=== PATIENT | male | born 1955 | race Caucasian/White ===

== ENCOUNTER 2017-08-28 06:23 | Day surgery (SDC) | payer OTHER ==
[~2017-08-28] VITALS: Ht 175.3 cm; Wt 71.8 kg
[~2017-08-28 06:23] MED LIST: ASPI-1182 PO; ASPI-1192 PO; CARV3 PO; CETI-290 PO; DONE5TAB5 PO; FLUO-191 PO; LISI-660 PO; MEMA5 PO; PRAV20TA4 PO; QUET100T PO; RANI150T7 PO; SIMV-261 PO; TAMS0.4C32 PO
[2017-08-28] MEDS ORDERED: LIDOCAINE HCL 2% 30 ML JELLY TP ONE (06:24)
[2017-08-28] MEDS ORDERED: LIDOCAINE HCL 4% 50 ML SOLUTION TP ONE (06:24)
[2017-08-28] MEDS ORDERED: BENZOCAINE 20% 50 MCG/SPRAY 57 GM TP ONE (06:24)
[2017-08-28] MEDS ORDERED: SODIUM CHLORIDE 0.9% 1,000 ML IV ONE ×2 (06:30→06:53)
[2017-08-28] MEDS ORDERED: MIDAZOLAM HCL 2 MG/2 ML VIAL ONE (07:38)
[2017-08-28] MEDS ORDERED: FentaNYL CITRATE-PF 100 MCG/2 ML VIAL ONE (07:38)
[2017-08-28] MEDS ORDERED: MethylPREDNISolone SOD SUCC 125 MG/2 ML VIAL IVP ONE (08:45)
[2017-08-28] MEDS ORDERED: MethylPREDNISolone SOD SUCC 125 MG/2 ML VIAL ONE (09:15)
[2017-08-28] MEDS ORDERED: OXYGEN THERAPY IH SCH (20:00)
== END 2017-08-28 10:20 | disposition home or self-care (01) ==
LOC: SURGERY 06:23
PROVIDERS: ATTEND Internal Medicine Critical Care Medicine
DX: J98.4 Other disorders of lung (principal); J38.4 Edema of larynx; R59.0 Localized enlarged lymph nodes; F17.210 Nicotine dependence, cigarettes, uncomplicated; Z98.890 Other specified postprocedural states; E78.00 Pure hypercholesterolemia, unspecified; F32.9 Major depressive disorder, single episode, unspecified; G43.909 Migraine, unspecified, not intractable, without status migrainosus; Z79.899 Other long term (current) drug therapy
CPT/HCPCS: 31623; 31624; 71010; 87015 ×2; 87070; 87101; 87205; 87220; 88108; 88312; 93005; J2250; J2930; J3010; J7030; 87153

== ENCOUNTER 2020-06-08 06:22 | Day surgery (SDC) | payer OTHER ==
[~2020-06-08] VITALS: Ht 175.3 cm; Wt 73.6 kg
[~2020-06-08 06:22] MED LIST changes: +ASPI-1111 PO; -ASPI-1182 PO; -CETI-290 PO; +CETI-450 PO; +SODIUM CHLORIDE 0.9% 1,000 ML IV ONE; +TAMS-13 PO; -TAMS0.4C32 PO
[2020-06-08] MEDS ORDERED: LIDOCAINE 2% 30 ML JELLY TP ONE (06:23)
[2020-06-08] MEDS ORDERED: ALBUTEROL SULFATE 2.5 MG/0.5 ML NEB SOLUTION NEB ONE (06:23)
[2020-06-08] MEDS ORDERED: BENZOCAINE 20% 50 MCG/SPRAY 57 GM TP ONE (06:23)
[2020-06-08] MEDS ORDERED: LIDOCAINE 4% 50 ML SOLUTION TP ONE (06:23)
[2020-06-08] MEDS ORDERED: MONT10TA21 PO (06:49)
[2020-06-08] MEDS ORDERED: OMEP20 PO (06:49)
[2020-06-08] MEDS ORDERED: TIOT185 IH (06:49)
[2020-06-08] MEDS ORDERED: ALBU8.5H8 IH (06:49)
[2020-06-08] MEDS ORDERED: MOME13HF IH (06:49)
[2020-06-08] MEDS ORDERED: SUCR1TAB28 PO (06:49)
[2020-06-08] MEDS ORDERED: FentaNYL CITRATE-PF 100 MCG/2 ML VIAL ONE (06:56)
[2020-06-08] MEDS ORDERED: MIDAZOLAM HCL 2 MG/2 ML VIAL ONE (06:56)
[2020-06-08] MEDS ORDERED: MethylPREDNISolone SOD SUCC 125 MG/2 ML VIAL IVP ONE (08:45)
[2020-06-08] MEDS ORDERED: MethylPREDNISolone SOD SUCC 125 MG/2 ML VIAL ONE (09:44)
[2020-06-08] MEDS ORDERED: OXYGEN THERAPY IH SCH (20:00)
== END 2020-06-08 10:35 | disposition home or self-care (01) ==
LOC: SURGERY 06:22
PROVIDERS: ATTEND Internal Medicine Critical Care Medicine
DX: J38.4 Edema of larynx (principal); B37.0 Candidal stomatitis; Z11.59 Encounter for screening for other viral diseases; E78.00 Pure hypercholesterolemia, unspecified; F32.9 Major depressive disorder, single episode, unspecified
CPT/HCPCS: 31623; 31624; 71045; 87015; 87070; 87101; 87205; 87206; 87220; 87635; 88108; 88312; 93005; J2250; J2930; J3010; U0003; 31622; J7613; Z7610